=== PATIENT | male | born 1945 | race Caucasian/White ===

== ENCOUNTER 2016-04-13 02:41 | Inpatient (IN) ==
[2016-04-08 12:58] LABS: MANUAL DIFF NEEDED? NO
[2016-04-08 13:04] LABS: URINE SOURCE CLEAN CATCH
[2016-04-08 13:10] LABS: BILIRUBIN URINE NEGATIVE (NEGATIVE); BLOOD URINE NEGATIVE (NEGATIVE); CLARITY CLEAR (CLEAR); COLOR YELLOW; GLUCOSE URINE NEGATIVE (NEGATIVE); LEUKOCYTES URINE NEGATIVE (NEGATIVE); NITRITE URINE NEGATIVE (NEGATIVE); PH URINE 5.5; PROTEIN URINE TRACE mg/dL (NEGATIVE); SP GRAVITY URINE 1.025; UROBILINOGEN URINE 0.2 EU/dL (0.2-1.0)
[2016-04-08 13:14] LABS: BASO% 0.2 % (0.0-0.8); EOS# 0.05 X1000 (0.0-0.7); EOS% 0.6 % (0.0-10.0); HEMATOCRIT 33.8 % (42.0-52.0); HEMOGLOBIN 11.8 g/dL (14.0-18.0); LYMPH# 1.17 X1000 (1.2-3.4); LYMPH% 14.1 % (20.5-51.1); MCH 32.7 PG (27-31); MCHC 34.9 g/dL (33-37); MCV 93.6 FL (81-99); MONO# 0.37 X1000 (0.11-0.59); MONO% 4.5 % (1.7-9.3); MPV 9.4 FL (7.4-10.4); NEUT% 80.6 % (42.2-75.2); PLT 368 X1000 (130-400); RBC 3.61 XMIL (4.7-6.1)
[2016-04-08 13:20] LABS: INR 0.97; PROTIME 10.3 Seconds (9.2-11.7); PTT 28.4 Seconds (22.0-36.0)
[2016-04-08 13:26] LABS: CALCIUM 9.1 mg/dL (8.8-10.2); POTASSIUM 4.4 mmol/L (3.5-5.1)
[2016-04-08 13:44] LABS: URINE EPITHELIAL CELLS <10 /HPF (<10); URINE RBC <10 /HPF (<10); URINE WBC <10 /HPF (<10)
--- NOTE | 2016-04-09 05:28 | EKG Report ---
Test Performed on : 04/08/2016 12:40:55 PM Test Reason : PAT Blood Pressure : / mmHG Vent. Rate : 096 BPM Atrial Rate : 096 BPM P-R Int : 142 ms QRS Dur : 092 ms QT Int : 342 ms P-R-T Axes : 075 -24 080 degrees QTc Int : 432 ms Normal sinus rhythm. Incomplete right bundle branch block Leftward axis inferiorly Nonspecific ST abnormality high-lateral lead AVL Nonspecific T wave abnormality - in V1-V2 may be related to IRBBB Abnormal ECG No previous ECGs available Confirmed by Walter Brown DO ([id number]) on 04/12/2016 3:22:23 PM
[2016-04-13] MEDS ORDERED: LYRICA ONE (06:55)
[2016-04-13] MEDS ORDERED: PEPCID ONE (06:55)
[2016-04-13] MEDS ORDERED: COLACE ONE (06:55)
[2016-04-13] MEDS ORDERED: REGLAN ONE (06:55)
[2016-04-13] MEDS ORDERED: LR 1,000 ML ONE ×2 (06:56→11:48)
[2016-04-13] MEDS ORDERED: CELEBREX ONE (06:56)
[2016-04-13] MEDS ORDERED: KEFZOL 2 GM/D5W 50 ML ONE (06:56)
[2016-04-13] MEDS ORDERED: SENSORCAINE 0.25%/EPI 1:200,000 ONE (08:25)
[2016-04-13] MEDS ORDERED: DURAMORPH ONE (08:25)
[2016-04-13] MEDS ORDERED: SODIUM CHLORIDE 0.9% ONE (08:25)
[2016-04-13] MEDS ORDERED: TORADOL ONE (08:25)
[2016-04-13] MEDS ORDERED: NEOSPORIN G.U. IRRIGANT ONE (08:25)
[2016-04-13] MEDS ORDERED: VANCOMYCIN ONE (08:25)
[2016-04-13] MEDS ORDERED: EXPAREL 1.3% ONE (08:26)
--- NOTE | 2016-04-13 08:26 | HISTORY AND PHYSICAL ---
CHIEF COMPLAINT: Right knee pain. HISTORY OF PRESENT ILLNESS: This is a 70-year-old male with a history of gradually increasing pain in the right knee. He knows of no specific injury to his knee. He has been treated conservatively without relief. He was evaluated in the office and found to need a right total knee arthroplasty. The surgical procedure, as well as risks and benefits were explained to the patient at this time who agreed to proceed. ALLERGIES: Not allergic to any medications. PAST MEDICAL HISTORY: Serious illnesses: Hypertension. Thyroid disorder. PAST SURGERIES: He has had throat reconstruction due to a goiter, hernia, thyroid, prostatectomy. REGULAR MEDICATIONS: Biotin 1, one a day. Prozac 20, one a day. Hydrochlorothiazide 12.5 one a day. Synthroid 200, one a day. Prinivil 40, one a day. Zocor 40, one a day. AndroGel 1 pump once a day, and he takes assorted vitamins and herbal supplements. REVIEW OF SYSTEMS: HEENT: He has had a history of throat reconstruction and states he has a small airway due to reconstruction surgery from a goiter. Respiratory: He is nonsmoker. No history of asthma, emphysema, or shortness of breath. Heart: No history of heart abnormalities. Abdomen: Has history of kidney stones done recently. No history of bowel or bladder abnormalities. PHYSICAL EXAMINATION: GENERAL APPEARANCE: This is a 70-year-old male, alert and oriented. His primary care physician is Dr. Tony in [place]. HEENT: Pupils equal, round, reactive. NECK: Good range of motion without adenopathy. RESPIRATORY: Respirations are equal, unlabored, and clear bilaterally. ABDOMEN: Soft, nontender. Bowel sounds present. EXTREMITIES: He complains of pain to his right knee. He has minimal swelling at this time. Sometimes has difficulty walking. IMPRESSION: Degenerative disease right knee. PLAN: Admit at this time for right total knee arthroplasty. Dictated by Alexi Flynn RN for Keith Neal MD
[2016-04-13] MEDS ORDERED: CYKLOKAPRON 1,000 MG/NS 100 ML ONE (08:45)
[2016-04-13] MEDS ORDERED: CLAVE SECONDARY SET 11953 ONE (08:46)
[2016-04-13] MEDS: CYKLOKAPRON 1,000 MG/NS 100 ML ONE ×2 (10:26→10:29)
[2016-04-13] MEDS ORDERED: NS 1,000 ML ONE (10:38)
[2016-04-13] MEDS ORDERED: FENTANYL ONE (11:05)
[2016-04-13] MEDS ORDERED: VERSED ONE (11:05)
[2016-04-13] MEDS ORDERED: DIPRIVAN 1% 50 ML ONE (11:06)
[2016-04-13] MEDS ORDERED: EPHEDRINE ONE (11:48)
--- NOTE | 2016-04-13 12:24 | OPERATIVE NOTE ---
PROCEDURE DATE: 04/13/2016 PREOPERATIVE DIAGNOSIS: Right knee degenerative joint disease. POSTOPERATIVE DIAGNOSIS: Right knee degenerative joint disease. PROCEDURE PERFORMED: Right total knee arthroplasty using Triathlon size 5 femoral component, size 5 tibial baseplate, an 11 mm articular insert, and asymmetrical 32 mm patellar component. SURGEON: Keith Neal MD TOPOLOGY TEACHER: 1. DEMIAN Lancaster 2. Alexi Flynn RN ANESTHESIA: Spinal. COMPLICATIONS: None. BLOOD LOSS: Minimal. DRAIN: Hemovac x1. DESCRIPTION OF PROCEDURE: The patient was brought to the operative suite and placed in supine position. After successful administration of spinal anesthesia, a well-padded tourniquet was placed along the right proximal thigh. The right lower extremity was prepped and draped in the usual fashion. The leg was exsanguinated and the tourniquet insufflated to 350 torr. A longitudinal incision was made beginning at the superior pole of the patella and extended distally to the tibia tuberosity. It was dissected sharply through the skin. Full-thickness skin flaps were elevated medially and laterally. A medial arthrotomy was made with a vastus snip. The medial capsule was elevated off the medial tibial plateau. The prepatellar fat pad, ACL, PCL, medial meniscus, and lateral meniscus were excised. A drill was entered into the center of the distal femur. An intramedullary guide was placed. A distal cutting block was pinned into place. A distal cut was made with an oscillating saw. The femur was sized to size 5. A size 5 cutting block was pinned into place. The anterior cuts, chamfer cuts, and posterior condylar cuts were made with the oscillating saw. Marginal osteophytes were removed with a rongeur. A box cutting block was pinned into place. A box cut was made with a box osteotome and oscillating saw. Posterior condyle osteophytes were removed with a curved osteotome and rongeur. Attention was then directed to the tibia. A drill was entered into the center of the tibia. An intramedullary guide was placed, checking alignment with a drop norma, referencing off the anterior cortex of the tibia and the second ray of the foot, and then taking 2 mm off the low side the tibia which, in this case, was medially. The tibial cutting block was pinned into place. The articular surface of the tibial plateau was then removed with the oscillating saw. Flexion and extension gaps were checked and balanced at 11 mm. The tibia was sized to size 5. A size 5 guide was used for the fin punch. The tibial trial, femoral trial, and 11 mm articular insert were placed, taken through range of motion, and found to have excellent alignment, balancing, and range of motion. Attention was then directed to the patella and 9 mm off the articular surface of the patella was removed with the oscillating saw. The patella was sized to a size asymmetrical 32. A size asymmetrical 32 guide was used to drill peg holes. The lateral facet was chamfered 30 to 45 degrees. A patella trial was placed, taken through range of motion, and found to have patellar subluxation. A lateral release was performed and then we had excellent patella tracking. All trials were then removed. The knee was copiously irrigated and dried, being certain all bone debris were removed. The tibial component, femoral component, and patellar component were cemented into place, excess cement being removed with a Nelson. Once the cement had hardened, excess cement was again removed with an osteotome. The knee was again copiously irrigated and dried, being certain all bone and cement debris was removed. The trial articular insert was removed. The knee was copiously infiltrated with Exparel, including the posterior capsule, anterior capsule, medial and lateral collateral ligaments, anterior musculature, and subcutaneous tissue. A drain was placed exiting superolaterally and buried in the lateral gutter. The definitive 11 mm articular insert was placed on the tibia and locked into place. The knee was again taken through range of motion and again found to have excellent alignment, balancing, range of motion, and patellar tracking. The medial arthrotomy was closed with 0 Vicryl. The skin edge was approximated with 2-0 Vicryl. After copiously irrigating the knee and drying, then the skin edge was approximated with 2-0 Vicryl. The skin was closed with skin luli and a sterile dressing was applied. The patient tolerated the procedure well without complication. At the end of the procedure, all counts were correct x2. The patient was transferred to the recovery room in stable condition.
[2016-04-13] MEDS ORDERED: MORPHINE IV PRN (12:30)
[2016-04-13] MEDS ORDERED: ZOFRAN IV PRN (12:30)
[2016-04-13] MEDS: TYLENOL PO SCH ×2 (13:20→18:38)
[2016-04-13] MEDS ORDERED: PATIENT'S OWN MED TD PRN (14:26)
[2016-04-13] MEDS: ULTRAM PO SCH ×2 (14:39→18:38)
[2016-04-13] MEDS: KEFZOL 2 GM/D5W 50 ML IV SCH (18:39)
[2016-04-13 21:16] LABS: URINE MICRO REVIEW NEEDED? NO; URINE SOURCE CATH
[2016-04-13] MEDS: ZOCOR PO SCH (21:20)
[2016-04-13] MEDS: COLACE PO SCH (21:20)
[2016-04-13] MEDS: CELEBREX PO SCH (21:20)
[2016-04-13] MEDS: LYRICA PO SCH (21:20)
[2016-04-13] MEDS: PERIDEX MT SCH (21:20)
[2016-04-13] MEDS: NS 1,000 ML IV SCH (21:21)
[2016-04-13 21:35] LABS: BILIRUBIN URINE NEGATIVE (NEGATIVE); BLOOD URINE NEGATIVE (NEGATIVE); COLOR YELLOW; GLUCOSE URINE NEGATIVE (NEGATIVE); LEUKOCYTES URINE NEGATIVE (NEGATIVE); NITRITE URINE NEGATIVE (NEGATIVE); PROTEIN URINE NEGATIVE (NEGATIVE); SP GRAVITY URINE 1.008; TURBIDITY URINE CLEAR (CLEAR); UROBILINOGEN URINE NORMAL (NORMAL)
[2016-04-13 21:36] LABS: UR EPITHELIAL CELLS <10 /HPF (<10); URINE BACTERIA 1+ /HPF; URINE WBC <10 /HPF (<10)
[2016-04-14] MEDS: TYLENOL PO SCH ×4 (00:03→17:46)
[2016-04-14] MEDS: ULTRAM PO SCH ×4 (00:03→17:46)
[2016-04-14] MEDS: KEFZOL 2 GM/D5W 50 ML IV SCH (01:09)
[2016-04-14] MEDS: NS 1,000 ML IV SCH ×2 (04:43→16:59)
[2016-04-14 05:57] LABS: HEMATOCRIT 27.2 % (42.0-52.0)
[2016-04-14 06:24] LABS: CALCIUM 8.4 mg/dL (8.8-10.2); POTASSIUM 4.9 mmol/L (3.5-5.1)
[2016-04-14] MEDS: XARELTO PO SCH (06:38)
[2016-04-14] MEDS: SYNTHROID PO SCH (06:39)
[2016-04-14] MEDS ORDERED: DECADRON IV ONE (09:00)
[2016-04-14] MEDS: PERIDEX MT SCH ×2 (09:16→22:04)
[2016-04-14] MEDS: BIOTIN 1 MG PO SCH (09:16)
[2016-04-14] MEDS: COLACE PO SCH ×2 (09:17→22:04)
[2016-04-14] MEDS: PEPCID PO SCH (09:17)
[2016-04-14] MEDS: PROZAC PO SCH (09:17)
[2016-04-14] MEDS: VITAMIN D PO SCH (09:17)
[2016-04-14] MEDS: LYRICA PO SCH ×2 (09:17→22:04)
[2016-04-14] MEDS: PRINIVIL PO SCH ×2 (09:18→22:05)
[2016-04-14] MEDS: VITAMIN C PO SCH (09:18)
[2016-04-14] MEDS: CELEBREX PO SCH ×2 (09:19→22:04)
[2016-04-14] MEDS: HYDROCHLOROTHIAZIDE PO SCH (09:19)
[2016-04-14] MEDS: THERA M PLUS PO SCH (09:19)
[2016-04-14] MEDS: OXY IR PO PRN ×3 (09:33→17:45)
--- NOTE | 2016-04-14 15:22 | PROGRESS NOTE ---
DATE: 04/14/2016 SUBJECTIVE: Mustapha Garcia is a 70-year-old male who is postoperative day 1 from a right total knee arthroplasty. He has no complaints. OBJECTIVE: He is a well-developed well-nourished male. He is alert and cooperative. His vital signs are stable. He is afebrile. He is ambulating well with physical therapy. His wound is clean, dry, intact without sign of infection. LABS: His hematocrit is stable at greater than 30. ASSESSMENT: Stable postoperative one visit from a right total knee arthroplasty. PLAN: We will continue physical therapy. Plans on going to rehab later in the week.
[2016-04-14] MEDS: ZOCOR PO SCH (22:04)
[2016-04-14] MEDS: AMBIEN PO PRN ×2 (22:05)
[2016-04-15] MEDS: TYLENOL PO SCH ×4 (00:35→17:51)
[2016-04-15] MEDS: ULTRAM PO SCH ×4 (00:36→17:51)
[2016-04-15 05:47] LABS: HEMATOCRIT 23.6 % (42.0-52.0); HEMOGLOBIN 7.9 g/dL (14.0-18.0)
[2016-04-15] MEDS: SYNTHROID PO SCH (06:51)
[2016-04-15] MEDS: XARELTO PO SCH (06:51)
[2016-04-15] MEDS: PERIDEX MT SCH ×2 (09:41→22:16)
[2016-04-15] MEDS: VITAMIN C PO SCH (09:41)
[2016-04-15] MEDS: PEPCID PO SCH (09:41)
[2016-04-15] MEDS: THERA M PLUS PO SCH (09:41)
[2016-04-15] MEDS: COLACE PO SCH ×2 (09:41→22:17)
[2016-04-15] MEDS: PRINIVIL PO SCH (09:41)
[2016-04-15] MEDS: VITAMIN D PO SCH (09:41)
[2016-04-15] MEDS: OXY IR PO PRN ×4 (09:42→22:17)
[2016-04-15] MEDS: PROZAC PO SCH (09:42)
[2016-04-15] MEDS: HYDROCHLOROTHIAZIDE PO SCH (09:42)
[2016-04-15] MEDS: LYRICA PO SCH ×2 (09:44→22:17)
[2016-04-15] MEDS: CELEBREX PO SCH ×2 (09:44→22:17)
[2016-04-15] MEDS: BIOTIN 1 MG PO SCH (09:44)
--- NOTE | 2016-04-15 15:01 | PROGRESS NOTE ---
DATE: 04/15/2016 SUBJECTIVE: Mustapha Garcia is a 70-year-old male who is postoperative day 2 from a right total knee arthroplasty. He has no complaints. OBJECTIVE: Vital signs: Stable. He is afebrile. Extremities: His wound is clean, dry, intact without sign of infection. His leg is neurovascularly intact without sign of deep venous thrombosis. LABORATORY: His hematocrit is 23%. He is asymptomatic. ASSESSMENT: Satisfactory postoperative day 2 visit from a right total knee arthroplasty. PLAN: He will continue working on physical therapy. He will plan on going to rehab tomorrow.
[2016-04-15] MEDS: AMBIEN PO PRN (22:16)
[2016-04-15] MEDS: MILK OF MAGNESIA PO PRN (22:16)
[2016-04-15] MEDS: ZOCOR PO SCH (22:16)
[2016-04-16] MEDS: ULTRAM PO SCH ×2 (03:41→09:41)
[2016-04-16] MEDS: TYLENOL PO SCH ×2 (03:41→09:42)
[2016-04-16] MEDS: MILK OF MAGNESIA PO PRN (05:52)
[2016-04-16] MEDS: SYNTHROID PO SCH ×2 (05:52→08:31)
[2016-04-16] MEDS: XARELTO PO SCH (05:52)
[2016-04-16 06:19] LABS: HEMATOCRIT 23.7 % (42.0-52.0); HEMOGLOBIN 7.9 g/dL (14.0-18.0)
[2016-04-16] MEDS: PROZAC PO SCH (08:51)
[2016-04-16] MEDS: VITAMIN D PO SCH (08:51)
[2016-04-16] MEDS: VITAMIN C PO SCH (08:51)
[2016-04-16] MEDS: CELEBREX PO SCH (08:52)
[2016-04-16] MEDS: BIOTIN 1 MG PO SCH (08:52)
[2016-04-16] MEDS: COLACE PO SCH (08:52)
[2016-04-16] MEDS: LYRICA PO SCH (08:52)
[2016-04-16] MEDS: THERA M PLUS PO SCH (08:52)
[2016-04-16] MEDS: PEPCID PO SCH (08:53)
--- NOTE | 2016-04-16 08:56 | DISCHARGE SUMMARY ---
ADMISSION DATE: 04/13/2016 DISCHARGE DATE: 04/16/2016 DISCHARGE DIAGNOSIS: Right knee degenerative joint disease, status post right total knee arthroplasty. DISCHARGE MEDICATIONS: See discharge medication list. DISPOSITION: Patient discharged to rehabilitation with instructions for total knee arthroplasty protocol. She is to return to see Dr. Neal in 1 week. HOSPITAL COURSE: On the day of admission, the patient underwent a right total knee arthroplasty. His postoperative course was unremarkable. At discharge, he is afebrile, tolerating a regular diet, ambulating well with physical therapy. His wound is clean, dry, intact without sign of infection. He is discharged to rehabilitation in stable condition with instructions as described above.
[2016-04-16 09:11] VITALS: BP 172/85
[2016-04-16] MEDS: PRINIVIL PO SCH (09:41)
[2016-04-16] MEDS: HYDROCHLOROTHIAZIDE PO SCH (09:41)
[2016-04-16] MEDS: PERIDEX MT SCH (09:42)
--- NOTE | 2016-04-16 10:01 | Diag Imaging Result Document ---
PROCEDURE NAME: CHEST-PORTABLE - 04/16/2016 AP PORTABLE CHEST: TIME: 0925 hours. FINDINGS: There is subsegmental atelectasis in the right base. There is no evidence of acute cardiac or pulmonary disease. No previous studies are available for comparison. IMPRESSION: Minimal right basilar atelectasis.
== END 2016-04-16 10:50 | DRG 470 ==
LOC: SURHOLD 02:41 → 4N 09:02
PROVIDERS: ADMIT Orthopaedic Surgery; ATTEND Orthopaedic Surgery
PROC: 0SRC0J9 Replacement of Right Knee Joint with Synthetic Substitute, Cemented, Open Approach (ICD-10-PCS; principal; 2016-04-13 08:54)
DX: M17.9 Osteoarthritis of knee, unspecified (principal); I10 Essential (primary) hypertension; E89.0 Postprocedural hypothyroidism; E11.9 Type 2 diabetes mellitus without complications; Z87.442 Personal history of urinary calculi; Z87.891 Personal history of nicotine dependence; Z79.899 Other long term (current) drug therapy
CPT/HCPCS: 71010; 80048; 81001; 85014; 85018; 85025; 85610; 85730; 86850; 86900; 86901; 88305; 88311; 93005; 93010; 94761; 94799; C9290; J0690; J1885; J2250; J2274; J3010; J3370; J7030; J7120; 97110-GP; 97116-GP; 97530-GP